=== PATIENT | male | born 1965 | race African-American/Black ===

== ENCOUNTER 2018-11-13 20:33 | Emergency (ER) | payer SELFPAY ==
[~2018-11-13 20:33] MED LIST: RSI MEDICATION KIT IV ONE
[2018-11-13 20:55] LABS: Absolute Lymphocytes (CBC) 2.3 K/uL (0.7-4.9); Basophils % 0.8 % (0-1.3); Eosinophils % 1.1 % (0-4.4); Hematocrit 43.6 % (39.6-49.0); Lymphocytes % 40.3 % (15.3-44.8); Monocytes % 12.9 % (3.3-12.3); RBC Red Blood Cell Count 4.74 M/uL (4.33-5.43)
[2018-11-13 20:59] LABS: Protime INR 0.99
[2018-11-13 21:18] LABS: ALT/SGPT 22 U/L (12-78); AST/SGOT 27 U/L (15-37); Albumin 3.9 g/dL (3.4-5.0); Alkaline Phosphatase 78 U/L (45-117); BUN Blood Urea Nitrogen 16 mg/dL (7-18); Bicarbonate 22 mmol/L (21-32); Bilirubin Direct 0.1 mg/dL (0-0.2); Bilirubin Total 0.4 mg/dL (0.2-1.0); Glucose Level 94 mg/dL (74-106); Magnesium 2.2 mg/dL (1.8-2.4); NT PRO-BNP 24 pg/mL (<125); Potassium 3.8 mmol/L (3.5-5.1); Protein, Total 8.1 g/dL (6.4-8.2); Sodium Level 142 mmol/L (136-145); Troponin (Emerg Dept Use Only) < 0.02 ng/mL (0.0-0.045)
[2018-11-13] MEDS ORDERED: NA CHLORIDE 0.9% 100 ML IV ONE (21:47)
[2018-11-13] MEDS ORDERED: ALTEPLASE 100 ML IV ONE (21:48)
--- NOTE | 2018-11-13 21:48 | EDPHYS ---
Physician Documentation [facility] Name: Ronald Miller Age: 53 yrs Sex: Male : 1965 Arrival Date: 11/13/2018 Time: 20:35 Bed 2 Private MD: ED Physician Michael Guevara HPI: 11/13 21:18 This 53 yrs old Black Male presents to ER via EMS with complaints of S/S of Possible pkl Stroke. 21:18 The patient's problem is reported as a facial droop, on left, visual difficulty, pkl blurred vision, weakness, in the left upper extremity, in the left lower extremity, in the left side of face. Onset: The symptoms/episode began/occurred just prior to arrival, 1 hour(s) ago. Associated signs and symptoms: Pertinent positives: blurred vision, diaphoresis, headache. Historical: - Allergies: 20:48 PENICILLINS; tl2 - Home Meds: 20:48 nitroglycerin 0.4 mg SL subl 1 tab [Active]; aspirin 81 mg Oral chew 1 tab once daily tl2 [Active]; - PMHx: 20:48 Myocardial infarction; tl2 - Immunization history:: Adult Immunizations up to date. - Ebola Screening: : No symptoms or risks identified at this time. - Social history:: Smoking status: Patient uses tobacco products, denies chronic smoking, but will smoke occasionally, cigars. ROS: 21:18 ENT: Negative for injury, pain, and discharge. pkl 21:18 Eyes: Positive for blurry vision. 21:18 ENT: Negative for acute changes. 21:18 Neck: Negative for stiffness. 21:18 Cardiovascular: Positive for chest pain. 21:18 Respiratory: Negative for cough, shortness of breath. 21:18 Abdomen/GI: Negative for abdominal pain, nausea, vomiting, and diarrhea. 21:18 Back: Positive for pain at rest, of the left upper back. 21:18 : Negative for urinary symptoms. 21:18 MS/extremity: Negative for acute changes. 21:18 Skin: Positive for diaphoresis. 21:18 Neuro: Positive for headache, speech changes, weakness, of the left upper and lower extremities. Exam: 21:18 Radiologist reports: No acute intracranial abnormalities pkl 21:18 ENT: Nares patent. No nasal discharge, no septal abnormalities noted. Tympanic membranes are normal and external auditory canals are clear. Oropharynx with no redness, swelling, or masses, exudates, or evidence of obstruction, uvula midline. Mucous membranes moist. 21:18 Head/face: Noted is mild left facial droop. 21:18 Eyes: blurred visions. No nystagmus. 21:18 Neck: Exam negative for acute changes. 21:18 Chest/axilla: Exam negative for acute changes. 21:18 Cardiovascular: Rate: bradycardic, actual rate is 58 bpm, Rhythm: regular. pkl 21:18 ECG was reviewed by the Attending Physician. 21:18 Respiratory: the patient does not display signs of respiratory distress, Respirations: normal, Breath sounds: are clear throughout. 21:18 Abdomen/GI: Bowel sounds: normal, Palpation: abdomen is soft and non-tender, in all quadrants. 21:18 Back: Exam negative for acute changes. 21:18 : Exam negative for acute changes. 21:18 Musculoskeletal/extremity: Exam is negative for acute changes. 21:18 Skin: Appearance: 21:18 Neuro: Orientation: is normal, Mentation: is normal, Cranial nerves: normal except mild left facial droop, Cerebellar function: dysmetria is noted on the left, Motor: Strength is 3/5 in the left upper and lower extremities. Vital Signs: 20:48 BP 148 / 106; Pulse 66; Resp 22; Temp 98.6; Pulse Ox 100% on R/A; Height 6 ft. 0 in. tl2 (182.88 cm); 21:00 BP 154 / 106; Pulse 63; Resp 18; Pulse Ox 100% on R/A; tl2 21:24 Weight 104.96 kg; tl1 21:42 BP 165 / 92; Pulse 74; Resp 18; Pulse Ox 99% on R/A; tl2 21:45 BP 155 / 84; Pulse 77; Resp 18; Pulse Ox 96% on R/A; tl2 22:00 BP 167 / 87; Pulse 78; Resp 18; Pulse Ox 100% on R/A; tl2 22:15 BP 174 / 85; Pulse 78; Resp 18; Pulse Ox 99% on R/A; tl2 21:24 Body Mass Index 31.38 (104.96 kg, 182.88 cm) tl1 NIH Stroke Scale Scores: 21:00 NIHSS Score: 4 tl2 21:00 NIHSS Score: 2 tl2 MDM: 21:11 Patient medically screened. pkl 21:18 Data reviewed: vital signs, nurses notes, lab test result(s), EKG, radiologic studies, pkl CT scan, plain films. ED course: Talked to Dr. Carrillo ( Stroke Fellow at [facility] ) Patient candidate for TPA.. Discussed risks and benefits of TPA with patient. Patient understand risks and benefits of TPA. Signed consent for TPA. 11/13 20:38 Order name: Basic Metabolic Panel ag4 11/13 20:38 Order name: CBC with Diff ag4 11/13 20:38 Order name: LFT's ag4 11/13 20:38 Order name: Magnesium ag4 11/13 20:38 Order name: NT PRO-BNP; Complete Time: 21:48 ag4 11/13 20:38 Order name: PT-INR; Complete Time: 21:13 ag4 11/13 20:37 Order name: CT Stroke Brain w/o Contrast tl2 11/13 20:38 Order name: Troponin (emerg Dept Use Only); Complete Time: 21:48 ag4 11/13 20:38 Order name: XRAY Chest (1 view) ag4 11/13 20:38 Order name: Basic Metabolic Panel; Complete Time: 21:48 EDMS 11/13 20:39 Order name: CBC with Automated Diff; Complete Time: 21:13 EDMS 11/13 20:39 Order name: Liver (Hepatic) Function; Complete Time: 21:48 EDMS 11/13 20:39 Order name: Magnesium; Complete Time: 21:48 EDMS 11/13 20:38 Order name: EKG; Complete Time: 20:40 ag4 11/13 20:38 Order name: Cardiac monitoring; Complete Time: 20:56 ag4 11/13 20:38 Order name: EKG - Nurse/Tech; Complete Time: 20:56 ag4 11/13 20:38 Order name: IV Saline Lock; Complete Time: 20:40 ag4 11/13 20:38 Order name: Labs collected and sent; Complete Time: 20:40 ag4 11/13 20:38 Order name: O2 Per Protocol; Complete Time: 20:41 ag4 11/13 20:38 Order name: O2 Sat Monitoring; Complete Time: 20:41 ag4 Administered Medications: 21:42 Drug: ACTIvase {Co-Signature: tl1 (Yesenia Porter RN).} Route: IV Thrombolytics; Rate: tl2 calculated rate; Infused Over: 60 mins; 22:39 Follow up: Response: No adverse reaction tl2 22:39 Drug: NS 0.9% 100 ml Route: IV; Rate: bolus; Site: right antecubital; tl2 22:40 Follow up: IV Status: Completed infusion; Infusion continued upon transfer tl2 Point of Care Testing: Blood Glucose: 20:57 Blood Glucose: 77 mg/dL; tl2 Ranges: Critical Glucose Levels:Adult <50 mg/dl or >400 mg/dl <40 mg/dl or >180 mg/dl Disposition: 11/13/18 21:47 Transfer ordered to Other Acute Care Facility. Diagnosis is Acute ischemic stroke. - Reason for transfer: Higher level of care. - Accepting physician is Dr. Banerjee. - Condition is Stable. - Problem is new. - Symptoms have improved. Critical care time excluding procedures: 21:18 Critical care time: Bedside Care: 30 minutes. Total time: 30 minutes pkl 21:18 Critical care time: Consultation: 10 minutes. Total time: 10 minutes pkl NIH Stroke Scale - NIH Stroke Score Date: 11/13/2018 Time: 21:00 Total Score = 4 1a. Level of Consciousness (LOC) - 0(Alert) 1b. Level of Consciousness (LOC) (Year \T\ Age) - 0(Both) 1c. LOC Commands (Open \T\ Closes Eyes/Acls Specialist) - 0(Both) 2. Best Gaze (Lateral Gaze Paresis) - 0(Normal) 3. Visual Field Loss - 0(No visual loss) 4. Facial Palsy - 1(Minor Paralysis) 5a. Left Arm: Motor (10-second hold) - 1(Drift) 5b. Right Arm: Motor (10-second hold) - 0(No drift) 6a. Left Leg: Motor (5-second hold - always test supine) - 1(Drift) 6b. Right Leg: Motor (5-second hold - always test supine) - 0(No drift) 7. Limb Ataxia (finger/nose \T\ heel/negron - test with eyes open) - 0(Absent) 8. Sensory Loss (pinprick arms/legs/face) - 0(Normal) 9. Best Language: Aphasia (description/naming/reading) - 1(Mild to moderate aphasia) 10. Dysarthria (speech clarity - read or repeat words) - 0(Normal) 11. Extinction and Inattention (visual/tactile/auditory/spatial/personal) - 0(No abnormality) Initials: tl2 NIH Stroke Scale - NIH Stroke Score Date: 11/13/2018 Time: 21:00 Total Score = 2 1a. Level of Consciousness (LOC) - 0(Alert) 1b. Level of Consciousness (LOC) (Year \T\ Age) - 0(Both) 1c. LOC Commands (Open \T\ Closes Eyes/Acls Specialist) - 0(Both) 2. Best Gaze (Lateral Gaze Paresis) - 0(Normal) 3. Visual Field Loss - 0(No visual loss) 4. Facial Palsy - 0(Normal) 5a. Left Arm: Motor (10-second hold) - 1(Drift) 5b. Right Arm: Motor (10-second hold) - 0(No drift) 6a. Left Leg: Motor (5-second hold - always test supine) - 1(Drift) 6b. Right Leg: Motor (5-second hold - always test supine) - 0(No drift) 7. Limb Ataxia (finger/nose \T\ heel/negron - test with eyes open) - 0(Absent) 8. Sensory Loss (pinprick arms/legs/face) - 0(Normal) 9. Best Language: Aphasia (description/naming/reading) - 0(No aphasia) 10. Dysarthria (speech clarity - read or repeat words) - 0(Normal) 11. Extinction and Inattention (visual/tactile/auditory/spatial/personal) - 0(No abnormality) Initials: tl2 Signatures: Dispatcher [employer] EDMS Michael Guevara MD MD [facility] Yair Abreu PA PA jmm Knox, Taylor, RN RN tl2 Tom Brooks ag4 Yesenia Porter RN tl1 Corrections: (The following items were deleted from the chart) 20:46 20:37 CT-STROKE BRAIN W/O CONTRAST+CT.RAD.BRZ ordered. EDKS EDMS 21:59 21:47 11/13/2018 21:47 Transfer ordered to [facility]. Diagnosis is Acute ischemic stroke. Reason for transfer: Higher level of care. Accepting physician is Dr. Carrillo. Condition is Stable. Problem is new. Symptoms have improved. pkl 23:11 21:59 11/13/2018 21:47 Transfer ordered to Other Acute Care Facility. Diagnosis tl2 is Acute ischemic stroke. Reason for transfer: Higher level of care. Accepting physician is Dr. Banerjee. Condition is Stable. Problem is new. Symptoms have improved. pkl
--- NOTE | 2018-11-13 21:48 | ER ---
Nurse's Notes 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 Pt was diaphoretic and anxious on EMS arrival. BP elevated. pt received 324 aspirin and 2 SL nitro. Transition of care: patient was not received from another setting of care. No acute neurological deficit is noted. Onset of symptoms was November 13, 2018 at 20:00. Risk Assessment: Do you want to hurt yourself or someone else? Patient reports no desire to harm self or others. Initial Sepsis Screen: Does the patient meet any 2 criteria? Altered Mental Status. Does the patient have a suspected source of infection? No. Patient's initial sepsis screen is negative. Care prior to arrival: Medication(s) given: ASA, 325 mg, Nitroglycerin, 0.4 mg SL x 2, IV initiated. 20 GA, in the left antecubital area. 20:44 Method Of Arrival: EMS: [facility] tl2 20:44 Pre-hospital glucose is not applicable to this patient. tl2 21:18 Acuity: CAYLA 1 tl2 Triage Assessment: 20:48 The onset of the patients symptoms was November 13, 2018 at 20:00. General: Appears tl2 uncomfortable, Behavior is appropriate for age, anxious. Pain: Complains of pain in back, jaw. Neuro: Level of Consciousness is awake, alert, obeys commands, Oriented to person, place, situation, Moves all extremities. Speech is normal, Facial symmetry appears normal, Reports weakness. Cardiovascular: Reports diaphoresis, jaw pain Denies chest pain. Respiratory: Airway is patent Respiratory effort is even, unlabored, Respiratory pattern is regular, symmetrical. GI: No signs and/or symptoms were reported involving the gastrointestinal system. Derm: Skin is diaphoretic, Skin is normal. Stroke Activation: Physician: Stroke Attending; Name: ; Notified At: ; Arrived At: Physician: Chief Stroke Resident; Name: ; Notified At: ; Arrived At: Physician: Stroke Resident; Name: ; Notified At: ; Arrived At: Physician: ED Attending; Name: Ismael; Notified At: 20:30; Arrived At: 20:31 Physician: ED Resident; Name: ; Notified At: ; Arrived At: Historical: - Allergies: 20:48 PENICILLINS; tl2 - Home Meds: 20:48 nitroglycerin 0.4 mg SL subl 1 tab [Active]; aspirin 81 mg Oral chew 1 tab once daily tl2 [Active]; - PMHx: 20:48 Myocardial infarction; tl2 - Immunization history:: Adult Immunizations up to date. - Ebola Screening: : No symptoms or risks identified at this time. - Social history:: Smoking status: Patient uses tobacco products, denies chronic smoking, but will smoke occasionally, cigars. Screenin:56 Abuse screen: Denies threats or abuse. Nutritional screening: No deficits noted. tl2 Tuberculosis screening: No symptoms or risk factors identified. Fall Risk IV access (20 points). Gait- Impaired (20 pts.). Assessment: 21:00 VAN Scoring: Arm Drift: Minor drift General: see triage assessment. tl2 21:07 The patient has not been NPO before screening. The patient is alert, and able to follow tl2 commands. The patient does not exhibit slurred or garbled speech. The patient is not exhibiting difficulty speaking. The patient does not exhibit difficulty understanding words. The patient is able to swallow own secretions with no drooling or need for suction. The patient did not tolerate one teaspoon of water. Drooling, immediate coughing, gurgling, or clearing of the throat was noted. Bedside swallow screening discontinued. Patient kept NPO until cleared by Speech Therapy or Physician. The patient failed the bedside swallow screening. The patient will be kept NPO until cleared by Speech Therapy or Physician. 21:07 Provider notified of bedside swallow screening results: Michael Guevara MD. tl2 21:30 T-PA (Activase) Screening: Indications: Definite evidence of stroke, ischemic, embolic, tl2 or hypertensive: Yes. Treatment will start within 4.5 hours onset of symptoms: Yes. No evidence of intracranial hemorrhage or CT of head and no evidence of peripheral hemorrhage or recent CVA: Yes. Consent for thrombolytic therapy: Yes. Vital Signs: 20:48 BP 148 / 106; Pulse 66; Resp 22; Temp 98.6; Pulse Ox 100% on R/A; Height 6 ft. 0 in. tl2 (182.88 cm); 21:00 BP 154 / 106; Pulse 63; Resp 18; Pulse Ox 100% on R/A; tl2 21:24 Weight 104.96 kg; tl1 21:42 BP 165 / 92; Pulse 74; Resp 18; Pulse Ox 99% on R/A; tl2 21:45 BP 155 / 84; Pulse 77; Resp 18; Pulse Ox 96% on R/A; tl2 22:00 BP 167 / 87; Pulse 78; Resp 18; Pulse Ox 100% on R/A; tl2 22:15 BP 174 / 85; Pulse 78; Resp 18; Pulse Ox 99% on R/A; tl2 21:24 Body Mass Index 31.38 (104.96 kg, 182.88 cm) tl1 NIH Stroke Scale Scores: 21:00 NIHSS Score: 4 tl2 21:00 NIHSS Score: 2 tl2 ED Course: 20:35 Patient arrived in ED. am2 20:35 Arm band placed on right wrist. tl2 20:46 Triage completed. tl2 20:48 CT Stroke Brain w/o Contrast In Process Unspecified. EDMS 20:56 Patient has correct armband on for positive identification. Placed in gown. Bed in low tl2 position. Call light in reach. Side rails up X2. 20:56 Initial lab(s) drawn, by ED staff, sent to lab. EKG done. Maintain EMS IV. Dressing tl2 intact. Good blood return noted. Site clean \T\ dry. Gauge \T\ site: 20 g L AC. 21:01 XRAY Chest (1 view) In Process Unspecified. EDMS 21:11 Michael Guevara MD is Attending Physician. pkl 21:20 Inserted saline lock: 18 gauge in right antecubital area, using aseptic technique. tl2 placed by HOPE Patterson. 23:09 Kellie Moore RN is Primary Nurse. tl2 23:10 No provider procedures requiring assistance completed. Patient transferred, IV remains tl2 in place. Administered Medications: 21:42 Drug: ACTIvase {Co-Signature: tl1 (Yesenia Porter RN).} Route: IV Thrombolytics; Rate: tl2 calculated rate; Infused Over: 60 mins; 22:39 Follow up: Response: No adverse reaction tl2 22:39 Drug: NS 0.9% 100 ml Route: IV; Rate: bolus; Site: right antecubital; tl2 22:40 Follow up: IV Status: Completed infusion; Infusion continued upon transfer tl2 Point of Care Testing: Blood Glucose: 20:57 Blood Glucose: 77 mg/dL; tl2 Ranges: Outcome: 21:47 ER care complete, transfer ordered by MD. carvalho 23:10 Transferred by helicopter to [facility], Transfer form completed. tl2 23:10 Condition: stable 23:10 Discharge instructions given to patient, Instructed on the need for transfer. 23:11 Patient left the ED. tl2 NIH Stroke Scale - NIH Stroke Score Date: 11/13/2018 Time: 21:00 Total Score = 4 1a. Level of Consciousness (LOC) - 0(Alert) 1b. Level of Consciousness (LOC) (Year \T\ Age) - 0(Both) 1c. LOC Commands (Open \T\ Closes Eyes/Ed Teacher) - 0(Both) 2. Best Gaze (Lateral Gaze Paresis) - 0(Normal) 3. Visual Field Loss - 0(No visual loss) 4. Facial Palsy - 1(Minor Paralysis) 5a. Left Arm: Motor (10-second hold) - 1(Drift) 5b. Right Arm: Motor (10-second hold) - 0(No drift) 6a. Left Leg: Motor (5-second hold - always test supine) - 1(Drift) 6b. Right Leg: Motor (5-second hold - always test supine) - 0(No drift) 7. Limb Ataxia (finger/nose \T\ heel/negron - test with eyes open) - 0(Absent) 8. Sensory Loss (pinprick arms/legs/face) - 0(Normal) 9. Best Language: Aphasia (description/naming/reading) - 1(Mild to moderate aphasia) 10. Dysarthria (speech clarity - read or repeat words) - 0(Normal) 11. Extinction and Inattention (visual/tactile/auditory/spatial/personal) - 0(No abnormality) Initials: tl2 NIH Stroke Scale - NIH Stroke Score Date: 11/13/2018 Time: 21:00 Total Score = 2 1a. Level of Consciousness (LOC) - 0(Alert) 1b. Level of Consciousness (LOC) (Year \T\ Age) - 0(Both) 1c. LOC Commands (Open \T\ Closes Eyes/Ed Teacher) - 0(Both) 2. Best Gaze (Lateral Gaze Paresis) - 0(Normal) 3. Visual Field Loss - 0(No visual loss) 4. Facial Palsy - 0(Normal) 5a. Left Arm: Motor (10-second hold) - 1(Drift) 5b. Right Arm: Motor (10-second hold) - 0(No drift) 6a. Left Leg: Motor (5-second hold - always test supine) - 1(Drift) 6b. Right Leg: Motor (5-second hold - always test supine) - 0(No drift) 7. Limb Ataxia (finger/nose \T\ heel/negron - test with eyes open) - 0(Absent) 8. Sensory Loss (pinprick arms/legs/face) - 0(Normal) 9. Best Language: Aphasia (description/naming/reading) - 0(No aphasia) 10. Dysarthria (speech clarity - read or repeat words) - 0(Normal) 11. Extinction and Inattention (visual/tactile/auditory/spatial/personal) - 0(No abnormality) Initials: tl2 Signatures: Dispatcher [employer] EDMS Michael Guevara MD MD pkYesenia Patel RN RN tl1 Kellie Moore RN RN tl2 Ashley Urias am2 Yesenia Porter RN tl1 Corrections: (The following items were deleted from the chart) 21:19 20:44 Acuity: CAYLA 2 tl2 tl2 21:25 20:48 BP 148 / 106; Pulse 66bpm; Resp 22bpm; Pulse Ox 100% RA; 127.01 kg; tl1 Height 6 ft. 0 in.; BMI: 37.9; tl2 22:04 21:08 NIHSS Score: 3 tl2 tl2 22:43 20:48 BP 148 / 106; Pulse 66bpm; Resp 22bpm; Pulse Ox 100% RA; Height 6 ft. 0 tl2 in.; tl1
[2018-11-13 23:51] VITALS: TEMP 98.6
[2018-11-13 23:57] VITALS: BP 174/85; O2SAT 99
--- NOTE | 2018-11-14 08:13 | RAD REPORT ---
EXAM DESCRIPTION: RAD - Chest Single View - 11/13/2018 9:01 pm CLINICAL HISTORY: Back pain, chest pain, jaw pain COMPARISON: April 2016 TECHNIQUE: AP portable chest image was obtained 2057 hours . FINDINGS: Lungs are clear. Heart size is upper normal without vascular engorgement. Resuscitation pa ddle overlies the upper right chest. Trachea is midline. No measurable pleural effusion and no pneumo thorax. No acute bony abnormality seen. No acute aortic findings suspected. IMPRESSION: No acute cardiopulmonary process.
--- NOTE | 2018-11-15 07:55 | EKG ---
Test Date: 2018-11-13 Test Time: 20:52:50 Hairspring Truing Inspector: MEASUREMENT RESULTS: Intervals: Rate: 58 NE: 142 QRSD: 96 QT: 386 QTc: 378 [place]: P: 35 NE: 142 QRS: 24 T: 24 INTERPRETIVE STATEMENTS: Sinus bradycardia Minimal voltage criteria for LVH, may be normal variant Borderline ECG Compared to ECG 05/07/2015 02:15:57 Left ventricular hypertrophy now present Sinus rhythm no longer present Electronically Signed On 11-15-18 07:54:08 CDT by Edilson English
--- NOTE | 2018-11-15 11:41 | RAD REPORT ---
EXAM DESCRIPTION: CT - Ct Stroke Brain Wo Cont - 11/13/2018 9:00 pm ADDENDUM #1 Addendum: I discussed these critical findings with Dr. Guevara at 2101 hours on 11/13/2018. Electronically signed by: Tomas Dhillon 11/13/2018 9:33 PM CDT End of Addendum EXAM DESCRIPTION: Ct Stroke Brain Wo Cont CLINICAL HISTORY: CONFUSED COMPARISON: None Available TECHNIQUE: Contiguous axial CT images of the head were obtained. Coronal and sagittal reconstructions were created from the axial data. This exam was performed according to our departmental dose-optimization program, which includes autom ated exposure control, adjustment of the mA and/or kV according to patient size and/or use of iterati ve reconstruction technique. FINDINGS: There is no evidence of acute mass, mass effect, midline shift or hemorrhage. The ventricl es and extra-axial CSF spaces are unremarkable. The brain parenchyma appears normal for the patient's age. No acute abnormalities of the bones is seen. IMPRESSION: No acute intracranial abnormality. Electronically signed by: Tomas Dhillon 11/13/2018 8:54 PM CDT Due to temporary technical issues with the PACS/Fluency reporting system, reports are being signed by the in house radiologist as a courtesy to ensure prompt reporting. The interpreting radiologist is f ully responsible for the content of the report.
== END 2018-11-13 23:11 ==
LOC: ER 20:33
DX: I63.9 Cerebral infarction, unspecified (principal); R29.704 NIHSS score 4; I25.2 Old myocardial infarction; Z72.0 Tobacco use; Z79.82 Long term (current) use of aspirin; Z88.0 Allergy status to penicillin
CPT/HCPCS: 36415; 70450; 71045; 80048; 80076; 82962; 83735; 83880; 84484; 85025; 85610; 92977; 93005; 99285; J2997

== ENCOUNTER 2019-03-04 18:43 | Emergency (ER) | payer SELFPAY ==
[2011-09-30 17:14] VITALS: BP 131/72
[2019-03-04 19:21] LABS: Absolute Lymphocytes (CBC) 2.2 K/uL (0.7-4.9); Basophils % 1.3 % (0-1.3); Hematocrit 41.5 % (39.6-49.0); Lymphocytes % 41.1 % (15.3-44.8); MPV 8.9 fL (7.6-11.3); RBC Red Blood Cell Count 4.45 M/uL (4.33-5.43)
[2019-03-04 19:27] LABS: Protime INR 1.03
[2019-03-04 19:31] LABS: ALT/SGPT 14 U/L (12-78); AST/SGOT 18 U/L (15-37); Albumin 3.5 g/dL (3.4-5.0); Alkaline Phosphatase 88 U/L (45-117); BUN Blood Urea Nitrogen 16 mg/dL (7-18); Bicarbonate 25 mmol/L (21-32); Bilirubin Direct 0.1 mg/dL (0-0.2); Bilirubin Total 0.4 mg/dL (0.2-1.0); Glucose Level 94 mg/dL (74-106); NT PRO-BNP 82 pg/mL (<125); Protein, Total 7.4 g/dL (6.4-8.2); Sodium Level 142 mmol/L (136-145); Troponin (Emerg Dept Use Only) < 0.02 ng/mL (0.0-0.045)
[2019-03-04] MEDS ORDERED: DIAZEPAM 5 MG TABLET ONE (19:50)
--- NOTE | 2019-03-04 21:03 | ER ---
Nurse's Notes [facility] Name: Ronald Miller Age: 53 yrs Sex: Male : 1965 Arrival Date: 03/04/2019 Time: 18:44 Bed 5 Private MD: Diagnosis: Chest pain, unspecified;Anxiety disorder, unspecified Presentation: 03/04 18:44 Presenting complaint: EMS states: DEVELOPED SOB, TACHYPNEA AND CARPAL PEDAL SPASMS 2/2 bp ARREST BY PD. Transition of care: patient was not received from another setting of care. Onset of symptoms is unknown. Risk Assessment: Do you want to hurt yourself or someone else? Patient reports no desire to harm self or others. Initial Sepsis Screen: Does the patient meet any 2 criteria? No. Patient's initial sepsis screen is negative. Does the patient have a suspected source of infection? No. Patient's initial sepsis screen is negative. 18:44 Method Of Arrival: EMS: [facility] bp 18:44 Acuity: CAYLA 3 bp 19:03 Care prior to arrival: None. mg2 Triage Assessment: 18:52 General: Appears in no apparent distress. comfortable, Behavior is cooperative, bp appropriate for age, agitated, anxious. Pain: Denies pain. EENT: No deficits noted. Neuro: Level of Consciousness is awake, alert, obeys commands, Oriented to person, place, time, situation, Appropriate for age. Cardiovascular: Rhythm is sinus rhythm. Respiratory: Reports shortness of breath at rest. GI: No signs and/or symptoms were reported involving the gastrointestinal system. : No signs and/or symptoms were reported regarding the genitourinary system. Derm: Skin is diaphoretic. Musculoskeletal: No deficits noted. Historical: - Allergies: 18:52 PENICILLINS; bp - Home Meds: 18:52 aspirin 81 mg Oral chew 1 tab once daily [Active]; Metoprolol Tartrate Oral [Active]; bp 19:03 nitroglycerin 0.4 mg SL subl 1 tab [Active]; mg2 - PMHx: 18:52 Myocardial infarction; Hypertension; bp - Immunization history:: Adult Immunizations up to date. - Social history:: Smoking status: Patient/guardian denies using tobacco. - Ebola Screening: : No symptoms or risks identified at this time. - Family history:: not pertinent. - Hospitalizations: : No recent hospitalization is reported. Screenin:53 Abuse screen: Denies threats or abuse. Denies injuries from another. Nutritional bp screening: No deficits noted. Tuberculosis screening: No symptoms or risk factors identified. Fall Risk None identified. Assessment: 18:53 General: SEE TRIAGE NOTE. bp 19:10 General: Appears in no apparent distress. uncomfortable, Behavior is cooperative, mg2 anxious. Pain: Complains of pain in chest Pain does not radiate. Pain currently is 5 out of 10 on a pain scale. Quality of pain is described as discomfort Pain began gradually. Neuro: Level of Consciousness is awake, alert, obeys commands, Oriented to person, place, time, situation, Appropriate for age. Cardiovascular: Reports chest pain, Capillary refill < 3 seconds Patient's skin is warm and dry. Respiratory: Reports shortness of breath Airway is patent Respiratory effort is even, unlabored, Respiratory pattern is regular, symmetrical. 19:10 GI: No signs and/or symptoms were reported involving the gastrointestinal system. : mg2 No signs and/or symptoms were reported regarding the genitourinary system. EENT: No signs and/or symptoms were reported regarding the EENT system. Derm: Skin is intact, Skin temperature is warm. Musculoskeletal: Circulation, motion, and sensation intact. Capillary refill < 3 seconds. 20:22 Reassessment: Patient and/or family updated on plan of care and expected duration. Pain ea level reassessed. Patient is alert, oriented x 3, equal unlabored respirations, skin warm/dry/pink. Pt resting with eyes closed, respirations even and unlabored. Chest expansions even and symmetrical. 21:12 Reassessment: Patient and/or family updated on plan of care and expected duration. Pain ea level reassessed. Patient is alert, oriented x 3, equal unlabored respirations, skin warm/dry/pink. Discharge instruction given to patient and family. Verbalized the understanding of instruction, pt left via wheelchair accompanied by family. Pt tolerating well. Vital Signs: 18:52 BP 163 / 90; Pulse 78; Resp 24; Temp 97.5; Pulse Ox 100% ; Weight 106.59 kg; bp 19:19 BP 143 / 89; Pulse 89; Resp 20; Temp 97.8; Pulse Ox 99% ; Pain 5/10; mg2 20:30 BP 171 / 88; Pulse 58; Resp 18; Pulse Ox 99% ; ea 21:00 BP 158 / 87; Pulse 60; Resp 18; Temp 97.6; Pulse Ox 99% ; ea ED Course: 18:44 Patient arrived in ED. mg2 18:44 Dean Kaiser, RN is Primary Nurse. bp 18:51 Triage completed. bp 18:52 Arm band placed on. bp 18:53 Patient has correct armband on for positive identification. Bed in low position. Call bp light in reach. Side rails up X2. 19:03 No provider procedures requiring assistance completed. Inserted saline lock: 20 gauge mg2 in right antecubital area, using aseptic technique. Blood collected. 19:05 Shar Mayo MD is Attending Physician. rn 19:18 XRAY Chest (1 view) In Process Unspecified. EDMS 21:00 IV discontinued, intact, bleeding controlled, No redness/swelling at site. Pressure ea dressing applied. Administered Medications: 19:56 Drug: Valium 5 mg Route: PO; ea 21:00 Follow up: Response: No adverse reaction ea Outcome: 21:02 Discharge ordered by . rn 21:14 Discharged to home via wheelchair, with family. ea 21:14 Condition: stable 21:14 Discharge instructions given to patient, Instructed on discharge instructions, follow up and referral plans. Demonstrated understanding of instructions, follow-up care. 21:16 Patient left the ED. ea Signatures: Dispatcher [employer] EDNY Shar Mayo MD MD rn Antunez, Elena RN Dean Joel ea, RN RN Dawson Finney RN RN mg2
--- NOTE | 2019-03-04 21:03 | EDPHYS ---
Physician Documentation [facility] Name: Ronald Miller Age: 53 yrs Sex: Male : 1965 Arrival Date: 03/04/2019 Time: 18:44 Bed 5 Private MD: ED Physician Shar Mayo HPI: 03/04 19:18 This 53 yrs old Black Male presents to ER via EMS with complaints of CHEST PAIN. rn 19:18 The patient or guardian reports chest pain that is located primarily in the anterior rn chest wall, left. Onset: just prior to arrival. The pain does not radiate. Associated signs and symptoms: Pertinent positives: lightheadedness, shortness of breath, Pertinent negatives: abdominal pain, cough, diaphoresis, headache, near syncope, vomiting. The chest pain is described as aching. Duration: The patient or guardian reports a single episode, that lasted 15 minute(s). Modifying factors: The symptoms are alleviated by nothing. the symptoms are aggravated by emotionally stressful situations. Severity of pain: At its worst the pain was moderate in the emergency department the pain has resolved. The patient has experienced similar episodes in the past. The patient has not recently seen a physician. Per EMS report, was being arrested, then felt chest pain, sob, and spasm of left arm. Reports has stress and anxiety that makes these symptoms worse but has also had stroke and heart attack in past so he wanted to make sure it wasn't happening again. Symptoms now resolved and helped with slow breathing and not stressing out. Reports works out and does cardio every day and doesn't have chest pain with exertion, usually only during emotional stress. Has residual left arm and leg weakness and numbness from stroke 3.5 months ago. . Historical: - Allergies: 18:52 PENICILLINS; bp - Home Meds: 18:52 aspirin 81 mg Oral chew 1 tab once daily [Active]; Metoprolol Tartrate Oral [Active]; bp 19:03 nitroglycerin 0.4 mg SL subl 1 tab [Active]; mg2 - PMHx: 18:52 Myocardial infarction; Hypertension; bp - Immunization history:: Adult Immunizations up to date. - Social history:: Smoking status: Patient/guardian denies using tobacco. - Ebola Screening: : No symptoms or risks identified at this time. - Family history:: not pertinent. - Hospitalizations: : No recent hospitalization is reported. ROS: 19:18 Constitutional: Negative for fever, chills, and weight loss, Eyes: Negative for injury, rn pain, redness, and discharge, Neck: Negative for injury, pain, and swelling, Cardiovascular: Negative for palpitations, and edema, Respiratory: Negative for cough, wheezing, and pleuritic chest pain, Abdomen/GI: Negative for abdominal pain, nausea, vomiting, diarrhea, and constipation, MS/Extremity: Negative for injury and deformity, Skin: Negative for injury, rash, and discoloration, Neuro: Negative for headache, weakness, numbness, tingling, and seizure. Exam: 19:17 ECG was reviewed by the Attending Physician. rn 19:18 Constitutional: This is a well developed, well nourished patient who is awake, alert, rn seems anxious and emotional Head/Face: Normocephalic, atraumatic. Eyes: Pupils equal round and reactive to light, extra-ocular motions intact. Lids and lashes normal. Conjunctiva and sclera are non-icteric and not injected. Cornea within normal limits. Periorbital areas with no swelling, redness, or edema. ENT: MMM Chest/axilla: Normal chest wall appearance and motion. Nontender with no deformity. Cardiovascular: Regular rate and rhythm. No pulse deficits. Respiratory: Lungs have equal breath sounds bilaterally, clear to auscultation. No increased work of breathing, no retractions or nasal flaring. Abdomen/GI: Soft, non-tender MS/ Extremity: Pulses equal, no cyanosis. Neurovascular intact. Full, normal range of motion. Equal circumference. Neuro: Awake and alert, GCS 15, oriented to person, place, time, and situation. Cranial nerves II-XII grossly intact. Motor strength 4/5 LUE/LLE with intention tremor, 5/5 RUE/RLE. Vital Signs: 18:52 BP 163 / 90; Pulse 78; Resp 24; Temp 97.5; Pulse Ox 100% ; Weight 106.59 kg; bp 19:19 BP 143 / 89; Pulse 89; Resp 20; Temp 97.8; Pulse Ox 99% ; Pain 5/10; mg2 20:30 BP 171 / 88; Pulse 58; Resp 18; Pulse Ox 99% ; ea 21:00 BP 158 / 87; Pulse 60; Resp 18; Temp 97.6; Pulse Ox 99% ; ea MDM: 19:06 Patient medically screened. rn 21:01 Differential diagnosis: acute myocardial infarction, acute pericarditis, anxiety, rn coronary artery disease pleurisy, pneumothorax. Data reviewed: vital signs, nurses notes, lab test result(s), EKG, radiologic studies, plain films, and as a result, I will discharge patient. Counseling: I had a detailed discussion with the patient and/or guardian regarding: the historical points, exam findings, and any diagnostic results supporting the discharge/admit diagnosis, lab results, radiology results, the need for outpatient follow up, to return to the emergency department if symptoms worsen or persist or if there are any questions or concerns that arise at home. Special discussion: Based on the patient's history, exam, and Dx evaluation, there is no indication for emergent intervention or inpatient Tx. It is understood by the patient/guardian that if the Sx's persist or worsen they need to return immediately for re-evaluation. I discussed with the patient/guardian in detail that at this point there is no indication for admission to the hospital. It is understood, however, that if the symptoms persist or worsen the patient needs to return immediately for re-evaluation. ED course: Feels much better after valium, neg trop, normal ecg, chest pain worse with emotional stress. Will dc home. Patient states ready to go home and family requesting to take him home. . 03/04 18:54 Order name: Basic Metabolic Panel; Complete Time: 19:45 gs 03/04 18:54 Order name: CBC with Diff; Complete Time: 19:45 gs 03/04 18:54 Order name: LFT's; Complete Time: 19:45 gs 03/04 18:54 Order name: Magnesium; Complete Time: 19:45 gs 03/04 18:54 Order name: NT PRO-BNP; Complete Time: 19:45 gs 03/04 18:54 Order name: PT-INR; Complete Time: 19:45 gs 03/04 18:54 Order name: Troponin (emerg Dept Use Only); Complete Time: 19:45 gs 03/04 18:54 Order name: LFT's bp 03/04 18:54 Order name: Magnesium bp 03/04 18:54 Order name: NT PRO-BNP bp 03/04 18:54 Order name: PT-INR bp 03/04 18:54 Order name: Troponin (emerg Dept Use Only) bp 03/04 18:54 Order name: XRAY Chest (1 view) 03/04 18:54 Order name: EKG; Complete Time: 18:55 03/04 18:54 Order name: Cardiac monitoring; Complete Time: 19:02 03/04 18:54 Order name: EKG - Nurse/Tech; Complete Time: 18:54 03/04 18:54 Order name: IV Saline Lock; Complete Time: 19:02 03/04 18:54 Order name: Labs collected and sent; Complete Time: 19:02 03/04 18:54 Order name: O2 Per Protocol; Complete Time: 19:03 03/04 18:54 Order name: O2 Sat Monitoring; Complete Time: 19:03 EC:17 Rate is 61 beats/min. Rhythm is regular. QRS [place] is Normal. [place] interval is normal. QRS rn interval is normal. QT interval is normal. No Q waves. T waves are Normal. No ST changes noted. Clinical impression: Normal ECG. Interpreted by me. Reviewed by me. Administered Medications: 19:56 Drug: Valium 5 mg Route: PO; ea 21:00 Follow up: Response: No adverse reaction ea Disposition: 03/04/19 21:02 Discharged to Home. Impression: Chest pain, unspecified, Anxiety disorder, unspecified. - Condition is Stable. - Discharge Instructions: Panic Attacks, Nonspecific Chest Pain, Hypertension, Generalized Anxiety Disorder. - Medication Reconciliation Form, Thank You Letter, Antibiotic Education, Prescription Opioid Use form. - Follow up: Private Physician; When: As needed; Reason: Recheck today's complaints, Re-evaluation by your physician. - Problem is new. - Symptoms have improved. Signatures: Dispatcher [employer] EDMS Shar Mayo MD MD rn Antunez, Elena, RN RN ea Starr, Gregory, MD MD gs Peltier, Brian RN Dawson Rollins RN RN mg2 Corrections: (The following items were deleted from the chart) 18:56 18:55 BASIC METABOLIC PANEL+C.LAB.BRZ ordered. EDMS EDMS 18:56 18:55 CBC+H.LAB.BRZ ordered. EDMS EDMS 18:58 18:55 Chest Single View+RAD.RAD.BRZ ordered. EDMS EDMS 19:05 18:54 Cardiac monitoring ordered. bp mg2 19:05 18:54 EKG - Nurse/Tech ordered. bp mg2 19:05 18:54 IV Saline Lock ordered. bp mg2 19:06 18:54 Labs collected and sent ordered. bp mg2 19:06 18:54 Oxygen Per Protocol ordered. bp mg2 19:06 18:54 O2 Sat Monitoring ordered. bp mg2 21:16 21:02 03/04/2019 21:02 Discharged to Home. Impression: Chest pain, unspecified; Anxiety ea disorder, unspecified. Condition is Stable. Forms are Medication Reconciliation Form, Thank You Letter, Antibiotic Education, Prescription Opioid Use. Follow up: Private Physician; When: As needed; Reason: Recheck today's complaints, Re-evaluation by your physician. Problem is new. Symptoms have improved. rn
--- NOTE | 2019-03-04 22:46 | RAD REPORT ---
EXAM DESCRIPTION: RAD - Chest Single View - 03/04/2019 7:18 pm CLINICAL HISTORY: Abdominal pain, tachypnea COMPARISON: November 13 TECHNIQUE: AP portable chest image was obtained 1906 hours . FINDINGS: Lungs are clear. Heart size is prominent but diminished compared to comparison. No acute v ascular engorgement. No measurable pleural effusion and no pneumothorax. No acute bony abnormality se en. No acute aortic findings suspected. IMPRESSION: No acute cardiopulmonary process.
--- NOTE | 2019-03-06 13:06 | EKG ---
Test Date: 2019-03-04 Test Time: 18:50:40 Rotoprinter: MEASUREMENT RESULTS: Intervals: Rate: 61 [place]: 148 QRSD: 90 QT: 382 QTc: 384 [place]: P: 49 [place]: 148 QRS: 30 T: 42 INTERPRETIVE STATEMENTS: Normal sinus rhythm Normal ECG Compared to ECG 11/13/2018 20:52:50 Sinus bradycardia no longer present Left ventricular hypertrophy no longer present Electronically Signed On 03-06-19 13:03:53 CDT by Eliud Hammer
== END 2019-03-04 21:16 | disposition home or self-care (01) ==
LOC: ER 18:43
DX: F41.9 Anxiety disorder, unspecified (principal); I10 Essential (primary) hypertension; I25.2 Old myocardial infarction; Z79.82 Long term (current) use of aspirin; Z88.0 Allergy status to penicillin; Z86.73 Personal history of transient ischemic attack (TIA), and cerebral infarction without residual deficits
CPT/HCPCS: 36415; 71045; 80048; 80076; 83735; 83880; 84484; 85025; 85610; 93005; 99284